=== PATIENT | male | born 1970 | race Caucasian/White ===

== ENCOUNTER 2017-01-23 10:54 | Emergency (ER) | payer OTHER ==
--- NOTE | ~2017-01-23 | CR133 ---
[facility] A Service of [facility] & [facility] RADIOLOGY TEXT RESULTS PATIENT: HOMA MOREL LOCATION: CFTX : 66 UNIT #: [id number] AGE: [address]: Kelli Villela APRN SEX: M ORDER DR: [id number] [facility] [address] [place], [place] [address] [id number] E MR#: [id number] Acc #: [id number] NAME: HOMA MOREL. : 1970 SEX: M STUDY DATE/TIME: 01/23/2017 12:24 UNIT: [facility] ROOM: STUDY DESCRIPTION: CR Forearm 2 View Rt Attending Physician: Kelli Villela A.P.R.N. Ordering Physician: Ed Jose Peterson M.D. Primary Care Physician: No Primary Care Physician MEDICAL IMAGING REPORT This report is preliminary unless electronic signature is present STUDY Right forearm, 2 views. HISTORY Laceration over a posterior forearm today on window glass. FINDINGS Two views are submitted. There is a soft tissue dressing present. Underlying bony elements appear intact. No fractures or radiopaque foreign bodies are seen. CONCLUSION No fractures or radiopaque foreign bodies identified. Dictated by... Gerald Ernandez M.D. THIS IS AN ELECTRONICALLY VERIFIED REPORT Gerald Ernandez M.D. at 01/24/2017 9:17 AM CORA/felipe TD: 01/23/2017 18:02 JOB #: [id number] MEDICAL IMAGING REPORT Page 1 of 1 COPY
[~2017-01-23 10:54] MED LIST: BACTRIM DS TABL1 TA1; BACTRIM DS TABL1 TA1 PO; FLEXERIL10 MG PO; NAPROSYN500 MG PO; NO MEDICATIONS; ULTRAM PO; VOLTAREN75 MG PO
== END 2017-01-23 13:25 | disposition home or self-care (01) ==
LOC: CED 10:54 → CFTX 10:54
DX: S51.811A Laceration without foreign body of right forearm, initial encounter (principal); Z23 Encounter for immunization; F17.210 Nicotine dependence, cigarettes, uncomplicated; W26.9XXA Contact with unspecified sharp object(s), initial encounter; Y92.009 Unspecified place in unspecified non-institutional (private) residence as the place of occurrence of the external cause
CPT/HCPCS: 12001; 73090; 90471; 90715; 99283